=== PATIENT | female | born 1985 | race American Indian/Alaskan Native ===

== ENCOUNTER 2019-09-20 11:21 | Inpatient (IN) | payer OTHER ==
[2019-09-20] MEDS ORDERED: TERBUTALINE 1 MG/1 ML INJ IVP PRN (12:49)
[2019-09-20] MEDS ORDERED: LIDOCAINE (2%) 20 MG/1 ML VIAL 20 ML MDV INFILTRATI ONE (12:49)
[2019-09-20] MEDS ORDERED: BUTORPHANOL 2 MG/1 ML INJ IV PRN ×2 (12:49)
[2019-09-20] MEDS ORDERED: NalbUPHINE 10 MG/1 ML INJ IV PRN (12:49)
[2019-09-20] MEDS ORDERED: ONDANSETRON 4 MG/2 ML INJ IV PRN (12:49)
[2019-09-20] MEDS ORDERED: TERBUTALINE 1 MG/1 ML INJ SUB-Q PRN (12:49)
[2019-09-20 13:20] LABS: Hematocrit 39.2 % (30.3-42.9); Hemoglobin 13.1 gm/dl (10.1-14.3); Mean Corpuscular HGB Conc 33 % (30-34); Mean Corpuscular Volume 94 fl (79-97); Platelet Count 318 K/mm3 (140-440); Red Blood Count 4.16 M/mm3 (3.65-5.03); Red Cell Distribution Width 14.9 % (13.2-15.2)
[2019-09-20] MEDS ORDERED: DINOPROSTONE 10 MG VAG SUPP VG PRN (14:09)
[2019-09-20] MEDS: LACTATED RINGERS 1,000 ML IV SCH (16:15)
--- NOTE | 2019-09-20 17:24 | History and Physical Report ---
History of Present Illness Date of examination: 09/20/19 Date of admission: 09/20/19 11:22 Chief complaint: IOL secondary to Morbid obesity History of present illness: 34 yo, @ 39 wks gestation, initiated care with [facility] at 9 wks gestation. Her has been complicated by obesity and anxiety/depression. She presents to [facility] for IOL secondary to MO, per APA recommendation. Labs: O+, antibody negative; platelet ct - 361; rubella immune; RPR non-reactive; HBsAg negative; HIV non-reactive; Gc/Chlamydia/Trich negative; Hgb A1c - 4.8; 1 hr gtt - 100; GBS negative Past History Past Medical History: other (obesity; anxiety/depression) Past Surgical History: tonsillectomy Family/Genetic History: diabetes (MGM), hypertension (MGM), stroke (MGM), cancer (colon and rectal - MGM), other (Alcoholism - MGF/PGF) Social history: single, full code. denies: smoking, alcohol abuse, prescription drug abuse, IV drug use - Obstetrical History Expected Date of Delivery: 09/27/19 Actual Gestation: 39 Week(s) 0 Day(s) : 1 Para: 0 Hx # Term Pregnancies: 0 Number of Pregnancies: 0 Spontaneous Abortions: 0 Induced : 0 Number of Living Children: 0 Medications and Allergies Allergies Allergy/AdvReac Type Severity Reaction Status Date / Time No Known Allergies Allergy Verified 09/18/19 18:13 Active Meds: Active Medications Butorphanol Tartrate (Stadol) 1 mg IV Q2H PRN PRN Reason: Pain, Moderate (4-6) Butorphanol Tartrate (Stadol) 2 mg IV Q2H PRN PRN Reason: Pain , Severe (7-10) Dinoprostone (Cervidil) 10 mg VG Q6H PRN PRN Reason: Cervical Ripening Last Admin: 09/20/19 15:15 Dose: 10 mg Documented by: Ephedrine Sulfate (Ephedrine Sulfate) 10 mg IV Q2M PRN PRN Reason: Hypotension Fentanyl (Sublimaze) 100 mcg IV Q2H PRN PRN Reason: Labor Pain Oxytocin/Sodium Chloride (Pitocin/Ns 20 Unit/1000ml Drip) 20 units in 1,000 mls @ 125 mls/hr IV DIRECT YOLY Lactated Ringer's (Lactated Ringers) 1,000 mls @ 125 mls/hr IV DIRECT YOLY Last Admin: 09/20/19 16:15 Dose: 125 mls/hr Documented by: Mineral Oil (Mineral Oil) 30 ml PO QHS PRN PRN Reason: Constipation Nalbuphine HCl (Nalbuphine) 10 mg IV Q2H PRN PRN Reason: Pain, Moderate (4-6) Ondansetron HCl (Zofran) 4 mg IV Q8H PRN PRN Reason: Nausea And Vomiting Terbutaline Sulfate (Brethine) 0.25 mg SUB-Q ONCE PRN PRN Reason: Hyperstimulation/Hypertonicity Terbutaline Sulfate (Brethine) 0.25 mg IVP ONCE PRN PRN Reason: Hyperstimulation/Hypertonicity Review of Systems All systems: negative - Vital Signs Vital signs: Vital Signs Pulse Pulse Ox 127 H 95 09/20/19 11:43 09/20/19 11:43 Temp Pulse Resp BP Pulse Ox 98.3 F 111 H 18 124/87 94 09/20/19 16:14 09/20/19 17:06 09/20/19 16:14 09/20/19 17:06 09/20/19 15:03 - Physical Exam Breasts: Positive: deferred Cardiovascular: Regular rate Lungs: Positive: Normal air movement Abdomen: Positive: other (gravid) Genitourinary (Female): Positive: normal external genitalia, normal perenium Cervix: Positive: other (S=D) Extremities: Positive: normal Deep Tendon Reflex Grade: Normal +2 - Obstetrical Uterine Contraction Monitor Mode: External Cervical Dilatation: 2 Cervical Effacement Percentage: 50 station: -3 Uterine Contraction Pattern: Irregular Uterine Tone Measurement Phase: Resting Uterine Contraction Intensity: Mild Results Result Diagrams: 09/20/19 12:18 All other labs normal. Assessment and Plan - Patient Problems (1) Encounter for induction of labor Current Visit: Yes Status: Acute Plan to address problem: Admit to [facility] IOL with cervidil placement x 12 hrs as tolerated IV pain meds as desired until active labor, then epidural if desired Anticipate (2) BMI 39.0-39.9,adult Current Visit: Yes Status: Acute (3) Anxiety and depression Current Visit: Yes Status: Acute
[2019-09-21] MEDS: LACTATED RINGERS 1,000 ML IV SCH ×4 (00:25→20:49)
[2019-09-21] MEDS: fentaNYL 100 MCG/2 ML INJ IV PRN ×3 (00:49→10:30)
[2019-09-21] MEDS ORDERED: OXYTOCIN DRIP 30 UNITS/500 ML BAG IV SCH (03:36)
--- NOTE | 2019-09-21 11:22 | Progress Note ---
Assessment and Plan A: IUP @ 39 1/7 Weeks Category I Tracing Early Labor GBS Negative P: Continue Pitocin Augmentation Prepare for Epidural Anesthesia Subjective - Subjective Date of service: 09/21/19 Patient reports: movement normal, contractions (Requesting Epidural Anesthesia) Objective - Vital Signs Vital Signs: Vital Signs - 12hr 09/21/19 09/21/19 09/21/19 00:00 00:05 01:07 Temperature 98 F Pulse Rate 103 H 82 Respiratory 18 Rate Blood Pressure 131/85 121/77 O2 Sat by Pulse Oximetry 09/21/19 09/21/19 09/21/19 04:00 04:11 07:16 Temperature 98.3 F 98.7 F Pulse Rate 106 H Respiratory 18 16 Rate Blood Pressure 121/71 O2 Sat by Pulse Oximetry 09/21/19 09/21/19 09/21/19 09:40 09:48 09:49 Temperature 98.7 F Pulse Rate 116 H 115 H Respiratory Rate Blood Pressure O2 Sat by Pulse 95 93 Oximetry 09/21/19 09/21/19 09/21/19 09:50 09:53 09:54 Temperature Pulse Rate 118 H 123 H 113 H Respiratory Rate Blood Pressure 104/62 O2 Sat by Pulse 95 94 Oximetry 09/21/19 09/21/19 09/21/19 09:58 09:59 10:03 Temperature Pulse Rate 114 H 115 H 119 H Respiratory Rate Blood Pressure O2 Sat by Pulse 97 94 97 Oximetry 09/21/19 09/21/19 09/21/19 10:06 10:08 10:13 Temperature Pulse Rate 117 H 110 H 125 H Respiratory Rate Blood Pressure O2 Sat by Pulse 92 96 95 Oximetry 09/21/19 09/21/19 09/21/19 10:18 10:22 10:23 Temperature Pulse Rate 120 H 113 H 121 H Respiratory Rate Blood Pressure 124/60 O2 Sat by Pulse 97 97 Oximetry 09/21/19 09/21/19 09/21/19 10:28 10:33 10:38 Temperature Pulse Rate 119 H 117 H 115 H Respiratory Rate Blood Pressure O2 Sat by Pulse 96 96 95 Oximetry 09/21/19 09/21/19 09/21/19 10:39 10:43 10:47 Temperature Pulse Rate 116 H 107 H 99 H Respiratory Rate Blood Pressure O2 Sat by Pulse 94 93 93 Oximetry 09/21/19 09/21/1919 10:48 10:51 10:53 Temperature Pulse Rate 120 H 107 H 116 H Respiratory Rate Blood Pressure 123/71 O2 Sat by Pulse 97 95 Oximetry 09/21/19 09/21/19 09/21/19 10:58 11:03 11:05 Temperature Pulse Rate 109 H 108 H 103 H Respiratory Rate Blood Pressure O2 Sat by Pulse 97 97 93 Oximetry 09/21/19 09/21/19 11:08 11:11 Temperature Pulse Rate 107 H 104 H Respiratory Rate Blood Pressure O2 Sat by Pulse 93 94 Oximetry - Exam Breasts: normal Cardiovascular: Regular rate Lungs: Clear to auscultation, Normal air movement Abdomen: Present: normal appearance, soft, normal bowel sounds Uterus: Present: normal, firm, fundal height above umbilicus FHR: category 1 Uterine Contraction Monitor Mode: External Cervical Dilatation: 3.5 (No BOW palpated; large amount of yellowish mucous observed) Cervical Effacement Percentage: 70 station: -2 Uterine Contraction Pattern: Irregular Uterine Tone Measurement Phase: Resting Uterine Contraction Intensity: Moderate Extremities: normal - Labs Labs: Laboratory Results - last 24 hr 09/20/19 09/20/19 12:18 12:45 WBC 9.6 RBC 4.16 Hgb 13.1 Hct 39.2 MCV 94 MCH 31 MCHC 33 RDW 14.9 Plt Count 318 Blood Type O POSITIVE Antibody Screen Negative
[2019-09-21] MEDS ORDERED: DEXMEDETOMIDINE 200 MCG/2 ML VIAL IV ONE (12:26)
[2019-09-21] MEDS ORDERED: SODIUM CHLORIDE P/F VIAL 10 ML 10 ML ONE (12:26)
[2019-09-21] MEDS ORDERED: NALOXONE 2 MG/2 ML INJ IV PRN (12:46)
[2019-09-21] MEDS ORDERED: ePHEDrine SULFATE 50 MG/1 ML INJ IV PRN (12:46)
--- NOTE | 2019-09-21 12:47 | Anesthesia Consultation ---
Anesthesia Consult and Med Hx Date of service: 09/21/19 - Airway Anesthetic Teeth Evaluation: Chipped, Caps ROM Head & Neck: Adequate Mental/Hyoid Distance: Adequate Mallampati Class: Class II Intubation Access Assessment: Probably Good - Pulmonary Exam CTA: Yes - Cardiac Exam Cardiac Exam: RRR - Pre-Operative Health Status ASA Pre-Surgery Classification: ASA3 Proposed Anesthetic Plan: Epidural - Pulmonary Hx Asthma: No - Cardiovascular System Hx Hypertension: No - Central Nervous System Hx Seizures: No Hx Psychiatric Problems: Yes - Endocrine Hx Renal Disease: No Hx Hypothyroidism: No Hx Hyperthyroidism: No - Hematic Hx Anemia: No Hx Sickle Cell Disease: No - Other Systems Hx Alcohol Use: No Hx Obesity: Yes
[2019-09-21] MEDS: ePHEDrine SULFATE 50 MG/1 ML INJ IV PRN ×2 (12:50→13:04)
[2019-09-21] MEDS ORDERED: fentaNYL-BUPIV 2 MCG/ML-0.125% 200 MCG/100 ML BAG EPIDURAL SCH (14:00)
--- NOTE | 2019-09-21 14:24 | Progress Note ---
Assessment and Plan A: IUP @ 39 1/7 Weeks Category I Tracing Active Labor GBS Negative P: Continue Pitocin Augmentation Internals Placed x 2 Multiple Maternal Position Changes Subjective - Subjective Date of service: 09/21/19 Patient reports: movement normal, contractions (Resting well under epidural; feeling a slight amount of pressure) Objective - Vital Signs Vital Signs: Vital Signs - 12hr 09/21/19 09/21/19 09/21/19 04:00 04:11 07:16 Temperature 98.3 F 98.7 F Pulse Rate 106 H Respiratory 18 16 Rate Blood Pressure 121/71 O2 Sat by Pulse Oximetry 09/21/19 09/21/19 09/21/19 09:40 09:48 09:49 Temperature 98.7 F Pulse Rate 116 H 115 H Respiratory Rate Blood Pressure O2 Sat by Pulse 95 93 Oximetry 09/21/19 09/21/19 09/21/19 09:50 09:53 09:54 Temperature Pulse Rate 118 H 123 H 113 H Respiratory Rate Blood Pressure 104/62 O2 Sat by Pulse 95 94 Oximetry 09/21/19 09/21/19 09/21/19 09:58 09:59 10:03 Temperature Pulse Rate 114 H 115 H 119 H Respiratory Rate Blood Pressure O2 Sat by Pulse 97 94 97 Oximetry 09/21/19 09/21/19 09/21/19 10:06 10:08 10:13 Temperature Pulse Rate 117 H 110 H 125 H Respiratory Rate Blood Pressure O2 Sat by Pulse 92 96 95 Oximetry 09/21/19 09/21/19 09/21/19 10:18 10:22 10:23 Temperature Pulse Rate 120 H 113 H 121 H Respiratory Rate Blood Pressure 124/60 O2 Sat by Pulse 97 97 Oximetry 09/21/19 09/21/19 09/21/19 10:28 10:33 10:38 Temperature Pulse Rate 119 H 117 H 115 H Respiratory Rate Blood Pressure O2 Sat by Pulse 96 96 95 Oximetry 09/21/19 09/21/19 09/21/19 10:39 10:43 10:47 Temperature Pulse Rate 116 H 107 H 99 H Respiratory Rate Blood Pressure O2 Sat by Pulse 94 93 93 Oximetry 09/21/19 09/21/19 09/21/19 10:48 10:51 10:53 Temperature Pulse Rate 120 H 107 H 116 H Respiratory Rate Blood Pressure 123/71 O2 Sat by Pulse 97 95 Oximetry 09/21/19 09/21/19 09/21/19 10:58 11:03 11:05 Temperature Pulse Rate 109 H 108 H 103 H Respiratory Rate Blood Pressure O2 Sat by Pulse 97 97 93 Oximetry 09/21/19 09/21/19 09/21/19 11:08 11:11 11:56 Temperature Pulse Rate 107 H 104 H 128 H Respiratory Rate Blood Pressure O2 Sat by Pulse 93 94 95 Oximetry 09/21/19 09/21/19 09/21/19 11:58 12:01 12:06 Temperature Pulse Rate 112 H 115 H 113 H Respiratory Rate Blood Pressure 132/77 O2 Sat by Pulse 91 91 Oximetry 09/21/19 09/21/19 09/21/19 12:09 12:11 12:16 Temperature Pulse Rate 117 H 123 H 121 H Respiratory Rate Blood Pressure O2 Sat by Pulse 92 91 96 Oximetry 09/21/19 09/21/19 09/21/19 12:20 12:21 12:29 Temperature Pulse Rate 114 H 120 H 114 H Respiratory Rate Blood Pressure O2 Sat by Pulse 94 97 97 Oximetry 09/21/19 09/21/19 09/21/19 12:32 12:34 12:36 Temperature Pulse Rate 113 H 120 H 109 H Respiratory Rate Blood Pressure 139/82 130/74 O2 Sat by Pulse 98 Oximetry 09/21/19 09/21/19 09/21/19 12:37 12:39 12:41 Temperature Pulse Rate 117 H 114 H 123 H Respiratory Rate Blood Pressure 125/67 125/66 116/65 O2 Sat by Pulse 95 Oximetry 09/21/19 09/21/19 09/21/19 12:44 12:45 12:48 Temperature Pulse Rate 103 H 120 H 113 H Respiratory Rate Blood Pressure 107/61 108/65 89/53 O2 Sat by Pulse 91 Oximetry 09/21/19 09/21/19 09/21/19 12:49 12:52 12:53 Temperature Pulse Rate 128 H 144 H 142 H Respiratory Rate Blood Pressure 123/60 109/53 O2 Sat by Pulse 94 Oximetry 09/21/19 09/21/19 09/21/19 12:54 12:56 12:57 Temperature Pulse Rate 116 H 129 H 114 H Respiratory Rate Blood Pressure 111/61 104/56 O2 Sat by Pulse 95 Oximetry 09/21/19 09/21/19 09/21/19 12:59 13:01 13:03 Temperature Pulse Rate 127 H 129 H 123 H Respiratory Rate Blood Pressure 100/53 91/50 93/54 O2 Sat by Pulse 93 94 Oximetry 09/21/19 09/21/19 09/21/19 13:04 13:05 13:08 Temperature Pulse Rate 131 H 126 H 128 H Respiratory Rate Blood Pressure 94/50 O2 Sat by Pulse 94 94 Oximetry 09/21/19 09/21/19 09/21/19 13:09 13:11 13:14 Temperature Pulse Rate 126 H 130 H 126 H Respiratory Rate Blood Pressure 92/55 O2 Sat by Pulse 93 94 Oximetry 09/21/19 09/21/19 09/21/19 13:17 13:19 13:21 Temperature Pulse Rate 121 H 129 H 122 H Respiratory Rate Blood Pressure 87/52 86/50 O2 Sat by Pulse 94 Oximetry 09/21/19 09/21/19 09/21/19 13:24 13:28 13:29 Temperature Pulse Rate 122 H 120 H 128 H Respiratory Rate Blood Pressure 124/63 O2 Sat by Pulse 93 93 Oximetry 09/21/19 09/21/19 09/21/19 13:30 13:33 13:34 Temperature Pulse Rate 132 H 120 H 122 H Respiratory Rate Blood Pressure 119/64 O2 Sat by Pulse 94 94 Oximetry 09/21/19 09/21/19 09/21/19 13:36 13:37 13:39 Temperature 97.7 F Pulse Rate 126 H 127 H Respiratory 19 Rate Blood Pressure O2 Sat by Pulse 94 94 Oximetry 09/21/19 09/21/19 09/21/19 13:44 13:48 13:49 Temperature Pulse Rate 132 H 125 H 126 H Respiratory Rate Blood Pressure 108/59 O2 Sat by Pulse 95 97 Oximetry 09/21/19 09/21/19 09/21/19 13:54 13:59 14:04 Temperature Pulse Rate 130 H 128 H 128 H Respiratory Rate Blood Pressure 118/63 O2 Sat by Pulse 96 98 98 Oximetry 09/21/19 09/21/19 09/21/19 14:09 14:14 14:18 Temperature Pulse Rate 132 H 131 H 126 H Respiratory Rate Blood Pressure 110/57 O2 Sat by Pulse 97 93 Oximetry - Exam Breasts: normal Cardiovascular: Regular rate Lungs: Clear to auscultation, Normal air movement Abdomen: Present: normal appearance, soft, normal bowel sounds Uterus: Present: normal, firm, fundal height above umbilicus FHR: category 1 Uterine Contraction Monitor Mode: Internal Cervical Dilatation: 7 (Small amount of clear fluid observed) Cervical Effacement Percentage: 90 station: -2 Uterine Contraction Pattern: Regular Uterine Tone Measurement Phase: Resting Uterine Contraction Intensity: Moderate Extremities: normal
[2019-09-21] MEDS: MINERAL OIL 30 ML ORAL LIQD PO PRN ×2 (19:10→19:51)
--- NOTE | 2019-09-21 20:03 | Progress Note ---
Assessment and Plan A: IUP @ 39 1/7 Weeks Category II Tracing Second Stage of Labor (Protracted) GBS Negative P: Multiple Pushing Positions Continue Pitocin Augmentation Consulted Dr. Francis for possible vaccum extraction Subjective - Subjective Date of service: 09/21/19 Patient reports: movement normal, contractions (Pushing with contractions) Objective - Vital Signs Vital Signs: Vital Signs - 12hr 09/21/19 09/21/19 09/21/19 09:40 09:48 09:49 Temperature 98.7 F Pulse Rate 116 H 115 H Respiratory Rate Blood Pressure O2 Sat by Pulse 95 93 Oximetry 09/21/19 09/21/19 09/21/19 09:50 09:53 09:54 Temperature Pulse Rate 118 H 123 H 113 H Respiratory Rate Blood Pressure 104/62 O2 Sat by Pulse 95 94 Oximetry 09/21/19 09/21/19 09/21/19 09:58 09:59 10:03 Temperature Pulse Rate 114 H 115 H 119 H Respiratory Rate Blood Pressure O2 Sat by Pulse 97 94 97 Oximetry 09/21/19 09/21/19 09/21/19 10:06 10:08 10:13 Temperature Pulse Rate 117 H 110 H 125 H Respiratory Rate Blood Pressure O2 Sat by Pulse 92 96 95 Oximetry 09/21/19 09/21/19 09/21/19 10:18 10:22 10:23 Temperature Pulse Rate 120 H 113 H 121 H Respiratory Rate Blood Pressure 124/60 O2 Sat by Pulse 97 97 Oximetry 09/21/19 09/21/19 09/21/19 10:28 10:33 10:38 Temperature Pulse Rate 119 H 117 H 115 H Respiratory Rate Blood Pressure O2 Sat by Pulse 96 96 95 Oximetry 09/21/19 09/21/19 09/21/19 10:39 10:43 10:47 Temperature Pulse Rate 116 H 107 H 99 H Respiratory Rate Blood Pressure O2 Sat by Pulse 94 93 93 Oximetry 09/21/19 09/21/19 09/21/19 10:48 10:51 10:53 Temperature Pulse Rate 120 H 107 H 116 H Respiratory Rate Blood Pressure 123/71 O2 Sat by Pulse 97 95 Oximetry 09/21/19 09/21/19 09/21/19 10:58 11:03 11:05 Temperature Pulse Rate 109 H 108 H 103 H Respiratory Rate Blood Pressure O2 Sat by Pulse 97 97 93 Oximetry 09/21/19 09/21/19 09/21/19 11:08 11:11 11:56 Temperature Pulse Rate 107 H 104 H 128 H Respiratory Rate Blood Pressure O2 Sat by Pulse 93 94 95 Oximetry 09/21/19 09/21/19 09/21/19 11:58 12:01 12:06 Temperature Pulse Rate 112 H 115 H 113 H Respiratory Rate Blood Pressure 132/77 O2 Sat by Pulse 91 91 Oximetry 09/21/19 09/21/19 09/21/19 12:09 12:11 12:16 Temperature Pulse Rate 117 H 123 H 121 H Respiratory Rate Blood Pressure O2 Sat by Pulse 92 91 96 Oximetry 09/21/19 09/21/19 09/21/19 12:20 12:21 12:29 Temperature Pulse Rate 114 H 120 H 114 H Respiratory Rate Blood Pressure O2 Sat by Pulse 94 97 97 Oximetry 09/21/19 09/21/19 09/21/19 12:32 12:34 12:36 Temperature Pulse Rate 113 H 120 H 109 H Respiratory Rate Blood Pressure 139/82 130/74 O2 Sat by Pulse 98 Oximetry 09/21/19 09/21/19 09/21/19 12:37 12:39 12:41 Temperature Pulse Rate 117 H 114 H 123 H Respiratory Rate Blood Pressure 125/67 125/66 116/65 O2 Sat by Pulse 95 Oximetry 09/21/19 09/21/19 09/21/19 12:44 12:45 12:48 Temperature Pulse Rate 103 H 120 H 113 H Respiratory Rate Blood Pressure 107/61 108/65 89/53 O2 Sat by Pulse 91 Oximetry 09/21/19 09/21/19 09/21/19 12:49 12:52 12:53 Temperature Pulse Rate 128 H 144 H 142 H Respiratory Rate Blood Pressure 123/60 109/53 O2 Sat by Pulse 94 Oximetry 09/21/19 09/21/19 09/21/19 12:54 12:56 12:57 Temperature Pulse Rate 116 H 129 H 114 H Respiratory Rate Blood Pressure 111/61 104/56 O2 Sat by Pulse 95 Oximetry 09/21/19 09/21/19 09/21/19 12:59 13:01 13:03 Temperature Pulse Rate 127 H 129 H 123 H Respiratory Rate Blood Pressure 100/53 91/50 93/54 O2 Sat by Pulse 93 94 Oximetry 09/21/19 09/21/19 09/21/19 13:04 13:05 13:08 Temperature Pulse Rate 131 H 126 H 128 H Respiratory Rate Blood Pressure 94/50 O2 Sat by Pulse 94 94 Oximetry 09/21/19 09/21/19 09/21/19 13:09 13:11 13:14 Temperature Pulse Rate 126 H 130 H 126 H Respiratory Rate Blood Pressure 92/55 O2 Sat by Pulse 93 94 Oximetry 09/21/19 09/21/19 09/21/19 13:17 13:19 13:21 Temperature Pulse Rate 121 H 129 H 122 H Respiratory Rate Blood Pressure 87/52 86/50 O2 Sat by Pulse 94 Oximetry 09/21/19 09/21/19 09/21/19 13:24 13:28 13:29 Temperature Pulse Rate 122 H 120 H 128 H Respiratory Rate Blood Pressure 124/63 O2 Sat by Pulse 93 93 Oximetry 09/21/19 09/21/19 09/21/19 13:30 13:33 13:34 Temperature Pulse Rate 132 H 120 H 122 H Respiratory Rate Blood Pressure 119/64 O2 Sat by Pulse 94 94 Oximetry 09/21/19 09/21/19 09/21/19 13:36 13:37 13:39 Temperature 97.7 F Pulse Rate 126 H 127 H Respiratory 19 Rate Blood Pressure O2 Sat by Pulse 94 94 Oximetry 09/21/19 09/21/19 09/21/19 13:44 13:48 13:49 Temperature Pulse Rate 132 H 125 H 126 H Respiratory Rate Blood Pressure 108/59 O2 Sat by Pulse 95 97 Oximetry 09/21/19 09/21/19 09/21/19 13:54 13:59 14:04 Temperature Pulse Rate 130 H 128 H 128 H Respiratory Rate Blood Pressure 118/63 O2 Sat by Pulse 96 98 98 Oximetry 09/21/19 09/21/19 09/21/19 14:09 14:14 14:18 Temperature Pulse Rate 132 H 131 H 126 H Respiratory Rate Blood Pressure 110/57 O2 Sat by Pulse 97 93 Oximetry 09/21/19 09/21/19 09/21/19 14:19 14:24 14:29 Temperature Pulse Rate 134 H 125 H 125 H Respiratory Rate Blood Pressure O2 Sat by Pulse 93 95 91 Oximetry 09/21/19 09/21/19 09/21/19 14:34 14:39 14:44 Temperature Pulse Rate 124 H 124 H 120 H Respiratory Rate Blood Pressure 145/71 O2 Sat by Pulse 89 92 91 Oximetry 09/21/19 09/21/19 09/21/19 14:49 14:51 14:54 Temperature Pulse Rate 118 H 119 H 125 H Respiratory Rate Blood Pressure 133/68 O2 Sat by Pulse 94 94 93 Oximetry 09/21/19 09/21/19 09/21/19 14:59 15:03 15:04 Temperature Pulse Rate 115 H 122 H 125 H Respiratory Rate Blood Pressure 134/68 O2 Sat by Pulse 96 93 Oximetry 09/21/19 09/21/19 09/21/19 15:09 15:13 15:14 Temperature Pulse Rate 107 H 110 H 109 H Respiratory Rate Blood Pressure O2 Sat by Pulse 95 94 96 Oximetry 09/21/19 09/21/19 09/21/19 15:19 15:20 15:21 Temperature Pulse Rate 118 H 120 H 125 H Respiratory Rate Blood Pressure 128/60 123/60 O2 Sat by Pulse 96 Oximetry 09/21/19 09/21/19 09/21/19 15:23 15:24 15:25 Temperature 98.4 F Pulse Rate 113 H 109 H Respiratory Rate Blood Pressure O2 Sat by Pulse 95 94 Oximetry 09/21/19 09/21/19 09/21/19 15:29 15:34 15:39 Temperature Pulse Rate 111 H 120 H 115 H Respiratory Rate Blood Pressure 128/85 O2 Sat by Pulse 96 97 98 Oximetry 09/21/19 09/21/19 09/21/19 15:44 15:48 15:49 Temperature Pulse Rate 117 H 110 H 118 H Respiratory Rate Blood Pressure 123/80 O2 Sat by Pulse 95 96 Oximetry 09/21/19 09/21/19 09/21/19 15:54 15:59 16:04 Temperature Pulse Rate 109 H 122 H 116 H Respiratory Rate Blood Pressure 113/71 O2 Sat by Pulse 96 95 96 Oximetry 09/21/19 09/21/19 09/21/19 16:09 16:14 16:17 Temperature Pulse Rate 114 H 113 H 102 H Respiratory Rate Blood Pressure O2 Sat by Pulse 98 96 94 Oximetry 09/21/19 09/21/19 09/21/19 16:19 16:20 16:23 Temperature Pulse Rate 117 H 117 H 101 H Respiratory Rate Blood Pressure 128/74 O2 Sat by Pulse 94 94 Oximetry 09/21/19 09/21/19 09/21/19 16:24 16:29 16:33 Temperature Pulse Rate 109 H 118 H 114 H Respiratory Rate Blood Pressure 137/75 O2 Sat by Pulse 95 97 Oximetry 09/21/19 09/21/19 09/21/19 16:34 16:39 16:44 Temperature Pulse Rate 110 H 104 H 108 H Respiratory Rate Blood Pressure O2 Sat by Pulse 97 98 95 Oximetry 09/21/19 09/21/19 09/21/19 16:49 17:05 17:19 Temperature Pulse Rate 114 H 116 H 117 H Respiratory Rate Blood Pressure 124/64 132/68 131/65 O2 Sat by Pulse 99 Oximetry 09/21/19 09/21/19 09/21/19 17:34 17:49 18:04 Temperature Pulse Rate 118 H 113 H 123 H Respiratory Rate Blood Pressure 141/97 119/61 128/83 O2 Sat by Pulse Oximetry 09/21/19 09/21/19 09/21/19 18:20 18:34 18:50 Temperature Pulse Rate 123 H 117 H 114 H Respiratory Rate Blood Pressure 153/125 149/66 146/70 O2 Sat by Pulse Oximetry 09/21/19 09/21/19 19:04 19:19 Temperature Pulse Rate 134 H 115 H Respiratory Rate Blood Pressure 148/78 136/73 O2 Sat by Pulse Oximetry - Exam Breasts: normal Cardiovascular: Regular rate Lungs: Clear to auscultation, Normal air movement Abdomen: Present: normal appearance, soft, normal bowel sounds FHR: category 2 Uterine Contraction Monitor Mode: External Cervical Dilatation: 10 (leaking a scant amount of clear fluid) Cervical Effacement Percentage: 100 station: +2 Uterine Contraction Pattern: Regular Uterine Tone Measurement Phase: Resting Uterine Contraction Intensity: Moderate Extremities: normal
[2019-09-21] MEDS: OXYTOCIN 20 UNIT/1000ML DRIP 20 UNITS/1,000 ML BAG IV SCH ×2 (20:20→22:22)
[2019-09-21] MEDS ORDERED: miSOPROStol 200 MCG TAB PR ONE (20:30)
[2019-09-21] MEDS ORDERED: miSOPROStol 200 MCG TAB ONE (20:59)
[2019-09-21] MEDS ORDERED: LIDOCAINE (2%) 20 MG/1 ML VIAL 20 ML MDV INFILTRATI ONE (21:12)
[2019-09-21] MEDS ORDERED: diphenhydrAMINE 25 MG CAP PO PRN (21:30)
[2019-09-21] MEDS ORDERED: LANOLIN/ZINC/DIMETHICONE (LANSINOH) 7 GM TP PRN (21:30)
[2019-09-21] MEDS ORDERED: WITCH HAZEL/ GLYCERIN PAD TP PRN (21:30)
[2019-09-21] MEDS ORDERED: MAGNESIUM HYDROXIDE (MOM) ORAL LIQD UDC PO PRN (21:30)
--- NOTE | 2019-09-21 21:45 | Procedure Note ---
OB Delivery Note - Delivery Date of Delivery: 09/21/19 (2014) Surgeon: JOSE YBARRA Estimated blood loss: other (600) - Vaginal Delivery presentation: vertex Delivery position: OA Intrapartum events: prolonged 2nd stage>2.5hr Delivery induction: cervidil Delivery augmentation: pitocin Delivery monitor: external uterine, internal FHT Route of delivery: Delivery placenta: manual Delivery cord: 3 umbilical vessels Episiotomy: none Delivery laceration: 2nd degree Delivery repair: vicryl Anesthesia: epidural Delivery comments: of a live 8'3 male over a second degree perineal laceration under epidural anesthesia with Apgars of 8 and 9 at 2014 on . directly to maternal abd/chest, skin to skin contact. Delayed cord clamping and cutting. 2nd degree laceration repaired with 2-[address]-1. Manual extraction of placenta complete and intact at 2051. Heavy uterine bleeding after extraction. 1000mcg of Cytotec placed per rectum. Bladder emptied with in and out catheter. Uterus became firm with external uterine massage; and lochia became light. Cord blood collected; placenta to pathology. - Infant A at 1 minute: 8 at 5 minutes: 9 Gender: Male (8'3)
[2019-09-21] MEDS: IBUPROFEN 600 MG TAB PO SCH (22:22)
[2019-09-22 00:09] LABS: Hematocrit 33.8 % (30.3-42.9); Hemoglobin 11.1 gm/dl (10.1-14.3); Mean Corpuscular HGB Conc 33 % (30-34); Mean Corpuscular Volume 94 fl (79-97); Platelet Count 302 K/mm3 (140-440); Red Blood Count 3.61 M/mm3 (3.65-5.03)
[2019-09-22] MEDS: SENNOSIDES/DOCUSATE SODIUM 8.6/50 MG TAB PO SCH ×2 (01:38→09:21)
[2019-09-22 02:16] LABS: Basophils % (Manual) 0 % (0.0-1.8); Eosinophils % (Manual) 0 % (0.0-4.3); Total Cells Counted 100
[2019-09-22 02:17] LABS: Macrocytosis Few; Stomatocytes Few
[2019-09-22 02:18] LABS: Large Platelets Few
[2019-09-22 02:19] LABS: Platelet Estimate Consistent w Auto
[2019-09-22] MEDS ORDERED: TETANUS,DIPH,PERTUSS(ACELL) VACCINE 0.5 ML SYRINGE IM ONE (06:00)
[2019-09-22] MEDS: IBUPROFEN 600 MG TAB PO SCH ×3 (06:09→17:59)
[2019-09-22] MEDS: FERROUS SULFATE 325 MG TAB PO SCH (09:21)
[2019-09-22] MEDS: PRENATAL VIT27-FE FUMARATE-FOLIC ACID VIT TAB PO SCH (09:21)
[2019-09-22] MEDS: HYDROcodone/ACETAMINOPHEN 5-325 MG TAB PO PRN ×3 (11:16→23:10)
[2019-09-22 11:18] LABS: Hematocrit 29.1 % (30.3-42.9); Hemoglobin 9.7 gm/dl (10.1-14.3)
[2019-09-22] MEDS ORDERED: BENZOCAINE/MENTHOL 20/0.5% TOP SPRAY 56 GM TP PRN (11:56)
--- NOTE | 2019-09-22 12:02 | Progress Note ---
Assessment and Plan - Patient Problems (1) Single live Current Visit: Yes Status: Acute (2) Status post normal vaginal delivery Current Visit: Yes Status: Acute Plan to address problem: PPD 1 - stable Continue routine orders Dermoplast ordered prn for moderate to severe perineal pain Anticipate discharge in 24 hours (3) Anemia due to blood loss, acute Current Visit: Yes Status: Acute Plan to address problem: Asymptomatic Continue iron therapy (4) Leukocytosis Current Visit: Yes Status: Acute Plan to address problem: WBC 21.1 Currently afebrile - temp 97.9 Repeat CBC 09/23/19 Subjective - Subjective Date of service: 09/22/19 Principal diagnosis: PPD #1; s/p Interval history: see H&P, OB Progress Notes and OB Delivery Procedure Note Patient reports: appetite normal, voiding normally, pain poorly controlled, ambulating normally, no dizzy ambulation [place]: doing well Objective - Vital Signs Latest vital signs: Vital Signs Temp Pulse Resp BP BP Pulse Ox 09/22/19 07:47 97.9 F 81 18 119/77 95 09/22/19 06:20 97.9 F 94 H 20 100/63 94 09/21/19 22:41 104 H 97 09/21/19 22:40 106 H 92 09/21/19 22:39 98.4 F 09/21/19 22:37 101.1 F H 09/21/19 22:36 105 H 95 09/21/19 22:31 100 H 132/88 97 09/21/19 22:26 116 H 99 09/21/19 22:22 18 09/21/19 22:21 120 H 98 09/21/19 22:16 115 H 138/92 99 09/21/19 22:11 121 H 97 09/21/19 22:06 110 H 91 09/21/19 22:02 129 H 94 09/21/19 22:01 118 H 139/77 97 09/21/19 21:56 123 H 98 09/21/19 21:51 118 H 97 09/21/19 21:46 112 H 122/72 99 09/21/19 21:41 110 H 97 09/21/19 21:31 107 H 132/81 09/21/19 21:30 121 H 99 09/21/19 21:25 118 H 99 12/19/19 21:20 103 H 99 09/21/19 21:16 98.7 F 113 H 20 124/69 124/69 99 09/21/19 21:15 115 H 100 09/21/19 20:52 147 H 96 09/21/19 20:49 117 H 152/71 09/21/19 20:47 112 H 96 09/21/19 20:34 123 H 127/61 09/21/19 20:33 126 H 98 09/21/19 20:28 121 H 99 09/21/19 20:05 113 H 153/77 09/21/19 19:19 115 H 136/73 09/21/19 19:04 134 H 148/78 09/21/19 18:50 114 H 146/70 09/21/19 18:34 117 H 149/66 09/21/19 18:20 123 H 153/125 09/21/19 18:04 123 H 128/83 09/21/19 17:49 113 H 119/61 09/21/19 17:34 118 H 141/97 09/21/19 17:19 117 H 131/65 09/21/19 17:05 116 H 132/68 09/21/19 16:49 114 H 124/64 99 09/21/19 16:44 108 H 95 09/21/19 16:39 104 H 98 09/21/19 16:34 110 H 97 09/21/19 16:33 114 H 137/75 09/21/19 16:29 118 H 97 09/21/19 16:24 109 H 95 09/21/19 16:23 101 H 94 09/21/19 16:20 117 H 128/74 09/21/19 16:19 117 H 94 09/21/19 16:17 102 H 94 09/21/19 16:14 113 H 96 09/21/19 16:09 114 H 98 09/21/19 16:04 116 H 113/71 96 09/21/19 15:59 122 H 95 09/21/19 15:54 109 H 96 09/21/19 15:49 118 H 96 09/21/19 15:48 110 H 123/80 09/21/19 15:44 117 H 95 09/21/19 15:39 115 H 98 09/21/19 15:34 120 H 128/85 97 09/21/19 15:29 111 H 96 09/21/19 15:25 109 H 94 09/21/19 15:24 113 H 95 09/21/19 15:23 98.4 F 09/21/19 15:21 125 H 123/60 09/21/19 15:20 120 H 128/60 09/21/19 15:19 118 H 96 09/21/19 15:14 109 H 96 09/21/19 15:13 110 H 94 09/21/19 15:09 107 H 95 09/21/19 15:04 125 H 93 09/21/19 15:03 122 H 134/68 09/21/19 14:59 115 H 96 09/21/19 14:54 125 H 93 09/21/19 14:51 119 H 94 09/21/19 14:49 118 H 133/68 94 09/21/19 14:44 120 H 91 09/21/19 14:39 124 H 92 09/21/19 14:34 124 H 145/71 89 09/21/19 14:29 125 H 91 09/21/19 14:24 125 H 95 09/21/19 14:19 134 H 93 09/21/19 14:18 126 H 110/57 09/21/19 14:14 131 H 93 09/21/19 14:09 132 H 97 09/21/19 14:04 128 H 118/63 98 09/21/19 13:59 128 H 98 09/21/19 13:54 130 H 96 09/21/19 13:49 126 H 97 09/21/19 13:48 125 H 108/59 09/21/19 13:44 132 H 95 09/21/19 13:39 127 H 94 09/21/19 13:37 97.7 F 19 09/21/19 13:36 126 H 94 09/21/19 13:34 122 H 94 09/21/19 13:33 120 H 119/64 09/21/19 13:30 132 H 94 09/21/19 13:29 128 H 93 09/21/19 13:28 120 H 124/63 09/21/19 13:24 122 H 93 09/21/19 13:21 122 H 86/50 09/21/19 13:19 129 H 94 09/21/19 13:17 121 H 87/52 09/21/19 13:14 126 H 94 09/21/19 13:11 130 H 92/55 09/21/19 13:09 126 H 93 09/21/19 13:08 128 H 94 09/21/19 13:05 126 H 94/50 09/21/19 13:04 131 H 94 09/21/19 13:03 123 H 93/54 09/21/19 13:01 129 H 91/50 94 09/21/19 12:59 127 H 100/53 93 09/21/19 12:57 114 H 104/56 09/21/19 12:56 129 H 111/61 09/21/19 12:54 116 H 95 09/21/19 12:53 142 H 109/53 09/21/19 12:52 144 H 123/60 09/21/19 12:49 128 H 94 09/21/19 12:48 113 H 89/53 09/21/19 12:45 120 H 108/65 09/21/19 12:44 103 H 107/61 91 09/21/19 12:41 123 H 116/65 09/21/19 12:39 114 H 125/66 95 09/21/19 12:37 117 H 125/67 09/21/19 12:36 109 H 130/74 09/21/19 12:34 120 H 98 09/21/19 12:32 113 H 139/82 09/21/19 12:29 114 H 97 09/21/19 12:21 120 H 97 09/21/19 12:20 114 H 94 09/21/19 12:16 121 H 96 09/21/19 12:11 123 H 91 09/21/19 12:09 117 H 92 09/21/19 12:06 113 H 91 09/21/19 12:01 115 H 91 09/21/19 11:58 112 H 132/77 Intake and Output 09/21/19 09/22/19 09/22/19 23:59 07:59 15:59 Intake Total 1064.017 290 Output Total 250 Balance 814.017 290 Intake: IV 1064.017 50 CLEOCIN 900 MG/50 mL 900 50 mg In 50 ml @ 100 mls/hr IV Q8H [facility] Rx#:[id number] Lactated Ringers 1,000 ml 772.917 @ 125 mls/hr IV DIRECT [facility] Rx#:[id number] PITOCin/NS 20 UNIT/1000ML 254.167 DRIP 20 units In 1,000 ml @ 125 mls/hr IV DIRECT [facility] Rx#:[id number] PITOCin/NS 30 UNIT/500ML 36.933 30 units In 500 ml @ 1 mls/hr IV TITR [facility] Rx#: [id number] Oral 240 Output: Urine 250 Indwelling Catheter 150 Void 100 Other: Total, Intake Amount 240 Total, Output Amount 100 # Voids Void 1 1 Estimated Blood Loss 600 - Exam Abdomen: Present: normal appearance, soft Vulva: both: laceration/episiotomy (well approximated) Uterus: Present: normal, firm, fundal height at umbilicus Extremities: Present: normal Comments: small lochia - Labs Labs: Abnormal lab results 09/21/19 09/22/19 Range/Units 23:23 10:48 WBC 21.1 H (4.5-11.0) K/mm3 RBC 3.61 L (3.65-5.03) M/mm3 Hgb 9.7 L (10.1-14.3) gm/dl Hct 29.1 L (30.3-42.9) % Seg Neuts % (Manual) 91.0 H (40.0-70.0) % Lymphocytes % (Manual) 6.0 L (13.4-35.0) % Seg Neutrophils # Man 19.2 H (1.8-7.7) K/mm3
[2019-09-23] MEDS ORDERED: SODIUM CHLORIDE 0.9% 500 ML 500 ML IV SCH (02:00)
[2019-09-23 05:18] LABS: Hematocrit 27.5 % (30.3-42.9); Mean Corpuscular HGB Conc 33 % (30-34); Mean Corpuscular Volume 93 fl (79-97); Platelet Count 292 K/mm3 (140-440); Red Blood Count 2.95 M/mm3 (3.65-5.03); Red Cell Distribution Width 14.8 % (13.2-15.2)
[2019-09-23] MEDS: FERROUS SULFATE 325 MG TAB PO SCH (08:11)
[2019-09-23] MEDS: HYDROcodone/ACETAMINOPHEN 5-325 MG TAB PO PRN ×2 (08:18→18:36)
--- NOTE | 2019-09-23 10:09 | Post Anesthesia Evaluation ---
- Post Anesthesia Evaluation Patient Participated: Yes Airway Patent: Yes Stable Respiratory Function: Yes Nausea/Vomiting: No Temp > 96.8F: Yes Pain Manageable: Yes Adequeate Hydration: Yes Anesthesia Complications: No Block Receding Appropriately: Yes Patient on Ventilator: No
[2019-09-23] MEDS: PRENATAL VIT27-FE FUMARATE-FOLIC ACID VIT TAB PO SCH (10:43)
[2019-09-23] MEDS: SENNOSIDES/DOCUSATE SODIUM 8.6/50 MG TAB PO SCH (10:43)
[2019-09-23] MEDS: IBUPROFEN 600 MG TAB PO SCH (10:43)
--- NOTE | 2019-09-23 13:25 | Progress Note ---
Assessment and Plan - Patient Problems (1) Anemia due to blood loss, acute Current Visit: Yes Status: Acute Plan to address problem: Will send home with iron (2) Leukocytosis Current Visit: Yes Status: Acute Plan to address problem: repeat WBC today is much imporved. (3) Status post normal vaginal delivery Current Visit: Yes Status: Acute Plan to address problem: stable PPD2. D/C home. RTO 6 weeks. Subjective - Subjective Date of service: 09/23/19 Principal diagnosis: PPD #2; s/p Patient reports: appetite normal, voiding normally, pain well controlled, ambulating normally, other Objective - Vital Signs Latest vital signs: Vital Signs Temp Pulse Resp BP BP Pulse Ox 09/23/19 08:43 98.4 F 103 H 18 108/79 09/23/19 01:56 98.2 F 101 H 18 99/65 97 09/22/19 17:06 97.9 F 95 H 18 105/57 92 Intake and Output 09/22/19 09/23/19 09/23/19 23:59 07:59 15:59 Intake Total 650 480 480 Output Total 350 Balance 300 480 480 Intake: IV 50 CLEOCIN 900 MG/50 mL 900 50 mg In 50 ml @ 100 mls/hr IV Q8H [facility] Rx#:[id number] Oral 240 480 Intake, Free Water 360 480 Output: Urine 350 Void 350 Other: Total, Intake Amount 240 480 Total, Output Amount 350 # Voids Void 2 - Exam Abdomen: Present: normal appearance, soft, tenderness Uterus: Present: normal, firm Extremities: Present: normal. Absent: tenderness - Labs Labs: Abnormal lab results 09/23/19 Range/Units 04:53 WBC 13.1 H (4.5-11.0) K/mm3 RBC 2.95 L (3.65-5.03) M/mm3 Hgb 9.0 L (10.1-14.3) gm/dl Hct 27.5 L (30.3-42.9) %
[2019-09-23 18:13] VITALS: BP 120/86
--- NOTE | 2019-10-13 19:10 | Discharge Summary ---
Providers - Providers Date of Admission: 09/20/19 11:22 Date of discharge: 09/23/19 Attending physician: DEIDRE BROOKS Primary care physician: DEIDRE BROOKS Hospitalization Reason for admission: induction of labor Delivery: Episiotomy: none Laceration: 2nd degree complications: none Discharge diagnosis: IUP at term delivered baby: male Condition at discharge: Stable Disposition: DC-01 TO HOME OR SELFCARE - Discharge Diagnoses (1) Anemia due to blood loss, acute Status: Acute (2) Leukocytosis Status: Acute (3) Status post normal vaginal delivery Status: Acute Plan - Discharge Medications Prescriptions: Ferrous Sulfate [Ferrous Sulfate 324 MG] 324 mg PO QDAY #60 tablet. Ibuprofen [Motrin 600 MG tab] 600 mg PO Q6H #30 tablet - Provider Discharge Summary Additional instructions: [] Smoking cessation referral if applicable(refer to patient education folder for contact #) [] Refer to [facility] Booklet Call your doctor immediately for: * Fever > 100.5 * Heavy vaginal bleeding ( >1 pad per hour) * Severe persistent headache * Shortness of breath * Reddened, hot, painful area to leg or breast * Drainage or odor from incision. * Keep incision clean and dry at all times and follow doctor's instructions regarding bathing/showering - Follow up plan Follow up: DEIDRE BROOKS MD [Primary Care Provider] - 6 Weeks Forms: [facility] Discharge Summary
== END 2019-09-23 18:15 | disposition home or self-care (01) | DRG 775 ==
LOC: TRG 11:21 → LD 11:22 → TRG 11:22 → OB 09-21 23:08
PROVIDERS: ADMIT Obstetrics & Gynecology; ATTEND Obstetrics & Gynecology
PROC: 10E0XZZ Delivery of Products of Conception, External Approach (ICD-10-PCS; principal; 2019-09-21)
PROC: 0KQM0ZZ Repair Perineum Muscle, Open Approach (ICD-10-PCS; 2019-09-21)
PROC: 3E0P7VZ Introduction of Hormone into Female Reproductive, Via Natural or Artificial Opening (ICD-10-PCS; 2019-09-21)
PROC: 3E0R3BZ Introduction of Anesthetic Agent into Spinal Canal, Percutaneous Approach (ICD-10-PCS; 2019-09-21)
PROC: 00HU33Z Insertion of Infusion Device into Spinal Canal, Percutaneous Approach (ICD-10-PCS; 2019-09-21)
PROC: 3E0234Z Introduction of Serum, Toxoid and Vaccine into Muscle, Percutaneous Approach (ICD-10-PCS; 2019-09-22)
DX: O99.214 Obesity complicating childbirth (principal); O75.89 Other specified complications of labor and delivery; D72.829 Elevated white blood cell count, unspecified; E66.01 Morbid (severe) obesity due to excess calories; O99.344 Other mental disorders complicating childbirth; O48.1 Prolonged pregnancy; F41.8 Other specified anxiety disorders; O99.02 Anemia complicating childbirth; D62 Acute posthemorrhagic anemia; O70.1 Second degree perineal laceration during delivery; Z82.49 Family history of ischemic heart disease and other diseases of the circulatory system; Z83.3 Family history of diabetes mellitus; Z3A.39 39 weeks gestation of pregnancy; Z37.0 Single live birth; Z82.3 Family history of stroke; Z81.1 Family history of alcohol abuse and dependence; Z80.8 Family history of malignant neoplasm of other organs or systems; Z23 Encounter for immunization
CPT/HCPCS: 36415; 59200; 85007; 85014; 85018; 85025; 85027; 86850; 86900; 86901; 88307; 90715; G0378; J2590; J3010; J3490; J7040; J7120